=== PATIENT | male | born 1955 | race Caucasian/White ===

== ENCOUNTER 2017-04-11 20:16 | Emergency (ER) | payer OTHER ==
[2017-04-11] MEDS ORDERED: SODIUM CHLORIDE 0.9% 1,000 ML IV ONE (20:34)
[2017-04-11] MEDS ORDERED: diltiaZEM INJ 5 MG/ML VIAL IVP STA (20:35)
[2017-04-11] MEDS ORDERED: diltiaZEM INJ 5 MG/ML VIAL ONE (20:36)
--- NOTE | 2017-04-11 20:37 | ED Physician Documentation ---
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 fib the other night which converted on its own. He developed it again today, it feels like thumping in his chest. It is not painful and he is not short of breath. No history of other heart issues. He took aspirin prior to arrival. Review of Systems Ten Systems: 10 systems reviewed and negative Constitutional: denies: Fever, Chills Cardiac: reports: Palpitations. denies: Chest pain / pressure, Pedal edema, Calf pain Respiratory: denies: Dyspnea PD PAST MEDICAL HISTORY - Past Medical History Past Medical History: Yes Cardiovascular: Atrial fibrillation Other Past Medical History: transient global amnesia - Past Surgical History Past Surgical History: Yes General: Appendectomy HEENT: Tonsil/Adenoidectomy - Present Medications Home Medications: Ambulatory Orders Medication Instructions Recorded Confirmed Aspirin 4 tab DAILY PRN 04/11/17 04/11/17 Topical Steroids 04/11/17 - Allergies Allergies/Adverse Reactions: Allergies Allergy/AdvReac Type Severity Reaction Status Date / Time No Known Drug Allergies Allergy Verified 04/11/17 20:23 - Social History Does the pt smoke?: No Smoking Status: Never smoker Does the pt drink ETOH?: Yes ETOH Use: Wine Does the pt have substance abuse?: No - Family History Family history: reports: Non contributory PD ED PE NORMAL - Vitals Vital signs reviewed: Yes - General General: Alert and oriented X 3, No acute distress - HEENT HEENT: PERRL, EOMI, Pharynx benign - Neck Neck: Supple, no meningeal sign, No bony TTP, Thyroid normal - Cardiac Cardiac: No murmur, Other (Rapid, irregular) - Respiratory Respiratory: No respiratory distress, Clear bilaterally - Abdomen Abdomen: Soft, Non tender - Back Back: No CVA TTP, No spinal TTP - Derm Derm: Normal color, Warm and dry, No rash - Extremities Extremities: No edema, No calf tenderness / cord - Neuro Neuro: Alert and oriented X 3, Normal speech Results - Vitals Vitals: Vital Signs - 24 hr 04/11/17 04/11/17 04/11/17 20:20 20:41 20:46 Temperature 36.8 C Heart Rate 133 H 123 H 100 Respiratory 18 20 20 Rate Blood Pressure 156/86 H 137/95 H 130/79 O2 Saturation 97 98 97 04/11/17 04/11/17 04/11/17 20:52 20:58 21:03 Temperature Heart Rate 103 H 101 H 92 Respiratory 20 Rate Blood Pressure 137/92 H 148/79 H 125/79 O2 Saturation 04/11/17 04/11/17 04/11/17 21:31 21:37 22:07 Temperature Heart Rate 102 H 100 116 H Respiratory 18 20 Rate Blood Pressure 126/80 117/68 128/87 H O2 Saturation 97 98 Oxygen O2 Source Room air - EKG (time done) 2028 Rate: Rate (enter#) (128) Rhythm: Atrial fibrillation [place]: Normal Intervals: RBBB Ischemia: Normal ST segments Computer interpretation: Agree with computer 2150 Rate: Rate (enter#) (110) Rhythm: Sinus tachycardia [place]: Normal Intervals: RBBB Ischemia: Normal ST segments - Labs Labs: Laboratory Tests 04/11/17 04/11/17 04/11/17 20:30 20:30 20:30 WBC 7.0 RBC 5.02 Hgb 15.7 Hct 47.4 MCV 94.4 H MCH 31.2 H MCHC 33.1 RDW 13.4 Plt Count 258 MPV 8.7 Neut # 3.7 Lymph # 1.8 [place] # 0.9 Eos # 0.5 Baso # 0.1 Absolute Nucleated RBC 0.00 Nucleated RBCs 0.0 Sodium 137 Potassium 3.7 Chloride 106 Carbon Dioxide 22 Anion Gap 9.0 BUN 16 Creatinine 0.9 Estimated GFR (MDRD) 86 L Glucose 146 H Calcium 9.0 Total Bilirubin 0.5 AST 27 ALT 39 Alkaline Phosphatase 48 Troponin I < 0.04 Total Protein 7.0 Albumin 4.1 Globulin 2.9 Albumin/Globulin Ratio 1.4 Lipase 117 H TSH 04/11/17 20:30 WBC RBC Hgb Hct MCV MCH MCHC RDW Plt Count MPV Neut # Lymph # [place] # Eos # Baso # Absolute Nucleated RBC Nucleated RBCs Sodium Potassium Chloride Carbon Dioxide Anion Gap BUN Creatinine Estimated GFR (MDRD) Glucose Calcium Total Bilirubin AST ALT Alkaline Phosphatase Troponin I Total Protein Albumin Globulin Albumin/Globulin Ratio Lipase TSH 2.00 PD MEDICAL DECISION MAKING - ED course ED course: 61-year-old gentleman presents with rapid A. fib with several hours duration, second episode in a week. He was administered diltiazem with rate control and then during a procainamide drip converted to sinus rhythm with cessation of his symptoms. Cardiology followup was advised. Departure - Departure Disposition: 01 Home, Self Care Clinical Impression: Atrial fibrillation Qualifiers: Atrial fibrillation type: paroxysmal Qualified Code(s): I48.0 - Paroxysmal atrial fibrillation Condition: Good Record reviewed to determine appropriate education?: Yes Instructions: Atrial Fibrillation Dc Comments: Take a baby aspirin daily. Return if worse. Follow up with a mailing machine operator for further evaluation including but not limited to echocardiogram.
[2017-04-11 20:43] LABS: BASOPHILS # (AUTO) 0.1 10^3/uL (0.0-0.1); BASOPHILS % (AUTO) 1.3 %; EOSINOPHILS # (AUTO) 0.5 10^3/uL (0.0-0.7); EOSINOPHILS % (AUTO) 7.3 %; HCT - HEMATOCRIT 47.4 % (42.0-52.0); HGB - HEMOGLOBIN 15.7 g/dL (14.0-18.0); LYMPHOCYTES # (AUTO) 1.8 10^3/uL (1.5-3.5); LYMPHOCYTES % (AUTO) 26.1 %; MEAN CORPUSCULAR HEMOGLOBIN 31.2 pg (27.0-31.0); MEAN CORPUSCULAR HGB CONC 33.1 g/dL (32.0-36.0); MEAN CORPUSCULAR VOLUME 94.4 fL (80.0-94.0); MEAN PLATELET VOLUME 8.7 fL (7.4-11.4); MONOCYTES # (AUTO) 0.9 10^3/uL (0.0-1.0); MONOCYTES % (AUTO) 13.2 %; NEUTROPHILS # (AUTO) 3.7 10^3/uL (1.5-6.6); NEUTROPHILS % (AUTO) 52.1 %; RED BLOOD COUNT 5.02 10^6/uL (4.70-6.10); RED CELL DISTRIBUTION WIDTH 13.4 % (12.0-15.0)
[2017-04-11 20:54] LABS: ALBUMIN/GLOBULIN RATIO 1.4 (1.0-2.2); BILIRUBIN,TOTAL 0.5 mg/dL (0.2-1.0); CREATININE 0.9 mg/dL (0.6-1.2); POTASSIUM 3.7 mmol/L (3.5-5.0)
[2017-04-11] MEDS ORDERED: PROCAINAMIDE 1,000 MG in SODIUM CHLORIDE 0.9% 240 ML IV STA (21:06)
[2017-04-11] MEDS ORDERED: SODIUM CHLORIDE 0.9% 250 ML IV ONE (21:11)
[2017-04-11 22:15] VITALS: BP 142/88
== END 2017-04-11 22:26 | disposition home or self-care (01) ==
LOC: ED 20:16
DX: I48.0 Paroxysmal atrial fibrillation (principal); I45.10 Unspecified right bundle-branch block; Z79.82 Long term (current) use of aspirin
CPT/HCPCS: 36415; 80053; 83690; 84443; 84484; 85025; 93005; 93010; 96374; 96375; 99284

== ENCOUNTER 2017-05-31 12:01 | Outpatient (CLI) | payer OTHER ==
--- NOTE | 2017-05-31 17:01 | CARDIAC PROCEDURE NOTE ---
DATE OF SERVICE: 05/31/2017 00:00:00 PRIMARY CARE PHYSICIAN: Dr. Javid Garrison PARK SERVICES SPECIALIST: Dr. Valdivia PROCEDURE: Treadmill MPS. PROCEDURE SYMPTOMS: New onset atrial fibrillation. CARDIAC RISK FACTORS: Include age and hyperlipidemia. PREVIOUS CARDIAC PROCEDURE: Includes distant history of stress test. CLINICAL HISTORY: A 62-year-old male without known coronary artery disease. INITIAL RESTING VITAL SIGNS: Blood pressure 126/82, heart rate 87, height 70 inches, weight 240 pounds, BMI 35.3. PROCEDURE AND FINDINGS: Patient identity and birthdate verified, consent signed , safety stop. The patient performed treadmill exercise using a Julio protocol completing 9 minutes, 19 seconds and completing an estimated work load of 10.1 metabolic equivalents. At target heart rate, Cardiolite was injected and the patient exercised another 60 seconds. Maximal blood pressure was 190/90 with a heart rate of 149 beats per minute or 93% of maximum predicted heart rate per age. The blood pressure response to exercise was within normal limits. The patient stopped due to tiring and shortness of breath. The resting ECG demonstrated normal sinus rhythm with right bundle branch abnormality. Maximum ST segment depression was less than 0.5 mm and upsloping. There were frequent paired PACs in recovery. FINAL IMPRESSIONS: 1. Negative stress electrocardiogram for ischemia by electrocardiographic criteria. 2. Negative stress test clinically for angina. 3. Frequent PACs in recovery. 4. [place] [employer] functional class I. 5. Await myocardial perfusion report. JOB #: [id number] EXT JOB #:[id number] [facility]
[2017-05-31 17:45] VITALS: BP 126/82
--- NOTE | 2017-06-01 09:12 | Nuclear Medicine Report ---
EXAM: SINGLE-ISOTOPE EXERCISE STRESS TEST. SINGLE-ISOTOPE AND ONE-DAY REST/STRESS MYOCARDIAL PERFUSION SCAN S WITH TOMOGRAPHIC IMAGING, QUANTITATIVE ANALYSIS, WALL MOTION ANALYSIS AND CALCULATION OF EJECTION F RACTION. EXAM DATE: 05/31/2017 01:03 PM. CLINICAL HISTORY: Atrial fibrillation. COMPARISON: None available. TECHNIQUE: A rest myocardial perfusion scan was done with tomography after the intravenous administration of 10. 9 mCi Tc-99m sestamibi. After an appropriate delay, a treadmill exercise stress was performed according to department protoco l. The patient exercised for 9 minutes and 19 seconds. The maximum heart rate was 149 bpm, which was 93% of the maximum predicted heart rate of 160 bpm. At approximately peak heart rate, 43.8 mCi of Tc- 99m sestamibi was injected for stress myocardial perfusion scan. Motion correction was applied when a ppropriate. Gated tomographic images were obtained for wall motion analysis and computation of left ventricular e jection fraction. FINDINGS: No fixed or reversible perfusion defects are evident. No focal wall motion abnormalities. The left ventricular end-diastolic volume is 107 cc. The left ventricular end-systolic volume is 41 c c. The left ventricular ejection fraction is calculated to be 62%. IMPRESSION: 1. No scintigraphic findings to indicate myocardial ischemia. Negative for infarct. 2. Normal left ventricular ejection fraction of 62%. 3. Normal segmental and global wall motion. 4. Normal left ventricular cavity size, no change with stress. [facility] Referring Provider Line: [phone] SITE ID: [id number]
== END 2017-05-31 12:02 | disposition home or self-care (01) ==
LOC: DI 12:01
PROVIDERS: ATTEND Internal Medicine Cardiovascular Disease
DX: I48.0 Paroxysmal atrial fibrillation (principal)
CPT/HCPCS: 78452; 93017; A9500

== ENCOUNTER 2018-04-03 16:33 | Outpatient (CLI) | payer OTHER ==
--- NOTE | 2018-04-05 15:33 | XRAY Report ---
CHEST TWO VIEWS: 04/03/2018 HISTORY: Cough. COMPARISON: None. FINDINGS: The heart size is normal. The lungs are clear. There is no pleural fluid or pneumothorax. Mild age-related degenerative change in the spine. IMPRESSION: NO ACUTE FINDINGS. NEGATIVE FOR AGE. CLEAR LUNGS. MTDD
== END 2018-04-03 16:34 | disposition home or self-care (01) ==
LOC: DI 16:33
PROVIDERS: ATTEND Family Medicine
DX: R05 Cough (principal)
CPT/HCPCS: 71046